=== PATIENT | female | born 1935 | race Caucasian/White ===

== ENCOUNTER 2017-10-14 18:32 | Inpatient (IN) | payer MEDICARE, BC ==
[~2017-10-14] VITALS: Ht 165.1 cm; Wt 40.0 kg
[~2017-10-14 18:32] MED LIST: DIAZ5TAB PO; OLME5TAB3 PO
[2017-10-14] MEDS ORDERED: ZOLP5TAB2 PO (19:14)
[2017-10-14] MEDS ORDERED: NITR50CA PO (19:14)
[2017-10-14] MEDS ORDERED: ONDA4TAB8 SL (19:14)
[2017-10-14] MEDS ORDERED: MULT1CAP34 PO (19:14)
[2017-10-14] MEDS ORDERED: QUETIAPINE 75 MG PO (19:14)
[2017-10-14] MEDS ORDERED: MIRT30TA7 PO (19:14)
[2017-10-14] MEDS ORDERED: METAMUCIL PO (19:14)
[2017-10-14] MEDS ORDERED: MAGN400O6 PO (19:14)
[2017-10-14] MEDS ORDERED: FERROUS SULFATE PO (19:14)
[2017-10-14] MEDS ORDERED: PANT40TA4 PO (19:14)
[2017-10-14] MEDS ORDERED: CLOT15CR4 TP (19:14)
[2017-10-14] MEDS ORDERED: ACET-2154 PO (19:14)
[2017-10-14] MEDS ORDERED: QUET50TA PO (19:14)
[2017-10-14] MEDS ORDERED: BISA10SU8 RC (19:14)
[2017-10-14] MEDS ORDERED: QUET25TA PO (19:14)
[2017-10-14] MEDS ORDERED: SACC250C PO (19:14)
[2017-10-14] MEDS ORDERED: METO50TA16 PO (19:14)
[2017-10-14] MEDS ORDERED: NA P133E RC (19:14)
[2017-10-14] MEDS ORDERED: CRAN400T3 PO (19:14)
[2017-10-14] MEDS ORDERED: ASPIRIN 325 MG TABLET PO ONE (19:30)
[2017-10-14] MEDS ORDERED: NITROGLYCERIN OINT 1 GM PACKET TP ONE ×2 (19:30→20:01)
[2017-10-14 19:44] LABS: BASOPHILS # (AUTO) 0.1 K/uL (0.0-8.0); BASOPHILS % (AUTO) 0.7 % (0.0-2.0); EOSINOPHILS % (AUTO) 0.3 % (0.0-7.0); HEMATOCRIT 40.1 % (31.2-41.9); HEMOGLOBIN 13.1 g/dL (10.9-14.3); LYMPHOCYTES # (AUTO) 1.5 K/uL (20.0-40.0); LYMPHOCYTES % (AUTO) 12.6 % (20.5-51.5); MEAN CORPUSCULAR HEMOGLOBIN 30.2 uug (24.7-32.8); MEAN CORPUSCULAR HGB CONC 33 g/dL (32.3-35.6); MEAN CORPUSCULAR VOLUME 92.3 fL (75.5-95.3); MONOCYTES # (AUTO) 0.6 K/uL (2.0-10.0); MONOCYTES % (AUTO) 4.7 % (0.0-11.0); NEUTROPHILS % (AUTO) 81.7 % (38.5-71.5); PLATELET COUNT (AUTO) 221 K/uL (179-408); RED BLOOD CELL COUNT(AUTO) 4.35 MIL/uL (3.63-4.92); WHITE BLOOD COUNT (AUTO) 12.3 K/uL (3.8-11.8)
[2017-10-14] MEDS ORDERED: IV NORMAL SALINE 1000 ML BAG IV ONE (19:45)
[2017-10-14] MEDS ORDERED: CEFTRIAXONE 1 G in IV DEXTROSE 5% 50 ML IV ONE (20:00)
[2017-10-14] MEDS ORDERED: ASPIRIN 325 MG TABLET ONE (20:02)
[2017-10-14 20:04] LABS: CARBON DIOXIDE 24 mmol/L (21-32); CHLORIDE 106 mmol/L (98-107); CREATININE 0.8 mg/dL (0.6-1.3); GLUCOSE 115 mg/dL (74-106); POTASSIUM 3.9 mmol/L (3.5-5.1); UREA NITROGEN, BLOOD 19 mg/dL (7-18)
[2017-10-14] MEDS ORDERED: ASPIRIN 300 MG RECTAL SUPP RC ONE ×2 (20:15→21:39)
[2017-10-14 20:18] LABS: ALANINE AMINOTRANSFERASE 19 U/L (14-59); ALKALINE PHOSPHATASE 161 U/L (50-136); ASPARTATE AMINOTRANSFERASE 18 U/L (15-37); BILIRUBIN,DIRECT 0.1 mg/dL (0.0-0.2); BILIRUBIN,TOTAL 0.4 mg/dL (0.2-1.0); TOTAL PROTEIN, SERUM 7.9 g/dL (6.4-8.2)
[2017-10-14] MEDS ORDERED: CEFTRIAXONE 1 G VIAL ONE (20:30)
[2017-10-14] MEDS ORDERED: ACETAMINOPHEN 325 MG SUPP ONE (20:37)
[2017-10-14] MEDS ORDERED: ONDANSETRON 4 MG/2 ML VIAL ONE (20:59)
[2017-10-14] MEDS ORDERED: ONDANSETRON IV *ER 4 MG/2 ML VIAL IV ONE (21:00)
[2017-10-14 21:04] LABS: *BILIRUBIN,URIN NEGATIVE (NEGATIVE); *BLOOD, URINE NEGATIVE (NEGATIVE); *CLARITY,URINE SLIGHTLY CLOUDY (CLEAR); *COLOR,URINE YELLOW (YELLOW); *KETONES,URINE NEGATIVE (NEGATIVE); *PROTEIN,URINE NEGATIVE (NEGATIVE); *UROBILINOGEN,URINE 0.2 E.U./dl (NORMAL); LEUKOCYTE ESTERASE ,URINE 3+ (NEGATIVE); NITRITE, URINE NEGATIVE (NEGATIVE); PH,URINE 7.5 (5.0-8.0); UGLUCOSE NEGATIVE (NEGATIVE)
[2017-10-14 21:06] LABS: BACTERIA,URINE MODERATE /HPF (NONE SEEN); RBC,URINE 0-3 /HPF (0-3); SQUAMOUS EPITHELIAL CELL,UR FEW /HPF (NONE SEEN); WBC,URINE 50-80 /HPF (0-3)
[2017-10-14 22:00] VITALS: BP 189/88
[2017-10-14] MEDS ORDERED: BISACODYL 10 MG SUPP.RECT RC PRN (22:00)
[2017-10-14] MEDS ORDERED: FLEET ENEMA 133 ML BOTTLE RC PRN (22:00)
[2017-10-14] MEDS ORDERED: ACETAMINOPHEN 325 MG TABLET PO PRN (22:00)
[2017-10-14] MEDS ORDERED: QUETIAPINE FUMARATE 25 MG TABLET PO PRN (22:00)
[2017-10-14] MEDS ORDERED: MAGNESIUM HYDROXIDE 30 ML LIQUID UDC PO PRN (22:15)
[2017-10-14] MEDS ORDERED: ONDANSETRON 4 MG/2 ML VIAL IV PRN (22:15)
[2017-10-14] MEDS ORDERED: HYDROCODONE/APAP 5-325MG TABLET PO PRN (22:15)
[2017-10-14] MEDS ORDERED: Z GUARD REMEDY PASTE 57 GM TUBE TOP PRN (22:15)
[2017-10-14] MEDS ORDERED: HYDROCODONE/APAP 10-325 MG TABLET PO PRN (22:15)
[2017-10-14] MEDS: IV NS 1000 ML 1,000 ML IV PRN (22:22)
[2017-10-14] MEDS ORDERED: ENOXAPARIN SODIUM 40 MG/0.4 ML DISP.SYRIN SQ ONE (23:30)
[2017-10-15] MEDS: LORAZEPAM 2 MG/1 ML VIAL IV PRN ×3 (00:03→23:13)
[2017-10-15 00:57] VITALS: BP 145/68
[2017-10-15 04:37] VITALS: BP 142/60
[2017-10-15 04:48] LABS: CARBON DIOXIDE 24 mmol/L (21-32); CHLORIDE 109 mmol/L (98-107); CREATININE 0.9 mg/dL (0.6-1.3); GLUCOSE 123 mg/dL (74-106); MAGNESIUM 1.9 mg/dL (1.8-2.4); PHOSPHOROUS 3.8 mg/dL (2.5-4.9); POTASSIUM 4.4 mmol/L (3.5-5.1); UREA NITROGEN, BLOOD 18 mg/dL (7-18)
[2017-10-15 04:57] LABS: THYROID STIMULATING HORMONE 0.602 mIU/mL (0.358-3.740)
[2017-10-15 05:17] LABS: CHOLESTEROL 204 mg/dL (<200); HDL CHOLESTEROL 49 mg/dL (40-60); TRIGLYCERIDES 85 MG/DL (30-150)
[2017-10-15 05:46] LABS: BASOPHILS % (AUTO) 0.4 % (0.0-2.0); HEMATOCRIT 37.1 % (31.2-41.9); HEMOGLOBIN 12.2 g/dL (10.9-14.3); LYMPHOCYTES # (AUTO) 1.2 K/uL (20.0-40.0); MEAN CORPUSCULAR HEMOGLOBIN 30.8 uug (24.7-32.8); MEAN CORPUSCULAR HGB CONC 33 g/dL (32.3-35.6); MEAN CORPUSCULAR VOLUME 93.8 fL (75.5-95.3); MONOCYTES # (AUTO) 0.4 K/uL (2.0-10.0); MONOCYTES % (AUTO) 3.6 % (0.0-11.0); NEUTROPHILS # (AUTO) 10.4 K/uL (1.8-8.9); PLATELET COUNT (AUTO) 191 K/uL (179-408); RED BLOOD CELL COUNT(AUTO) 3.96 MIL/uL (3.63-4.92); WHITE BLOOD COUNT (AUTO) 12.1 K/uL (3.8-11.8)
[2017-10-15] MEDS ORDERED: BISACODYL 10 MG SUPP.RECT RC PRN (07:13)
[2017-10-15] MEDS ORDERED: FLEET ENEMA 133 ML BOTTLE RC PRN (07:17)
[2017-10-15] MEDS ORDERED: QUETIAPINE FUMARATE 25 MG TABLET PO PRN (07:18)
[2017-10-15] MEDS: METOPROLOL TARTRATE 50 MG TABLET PO SCH ×2 (08:07→16:00)
[2017-10-15] MEDS: QUETIAPINE FUMARATE 100 MG TABLET PO SCH (08:07)
[2017-10-15] MEDS ORDERED: MAGNESIUM HYDROXIDE 30 ML LIQUID UDC PO SCH (09:00)
[2017-10-15] MEDS ORDERED: CLOTRIMAZOLE/BETAMET DIPROP CREAM 15 GM TUBE TP SCH (09:00)
[2017-10-15] MEDS: IV NS 1000 ML 1,000 ML IV PRN (11:47)
[2017-10-15 11:50] VITALS: BP 104/72
[2017-10-15 15:35] VITALS: BP 170/90
[2017-10-15] MEDS: CLOTRIMAZOLE/BETAMET DIPROP CREAM 15 GM TUBE TP SCH ×2 (16:48→20:00)
[2017-10-15] MEDS: MIRTAZAPINE 15 MG TABLET PO SCH (20:00)
[2017-10-15] MEDS: QUETIAPINE FUMARATE 25 MG TABLET PO SCH (20:00)
[2017-10-15] MEDS: ENOXAPARIN SODIUM 40 MG/0.4 ML DISP.SYRIN SQ SCH (20:01)
[2017-10-15] MEDS: CEFTRIAXONE 1 G in IV DEXTROSE 5% 50 ML IV SCH (20:03)
[2017-10-15 21:14] VITALS: BP 165/69
[2017-10-16] MEDS: IV NS 1000 ML 1,000 ML IV PRN ×2 (01:41→15:01)
[2017-10-16 04:09] VITALS: BP 101/62
[2017-10-16] MEDS: METOPROLOL TARTRATE 50 MG TABLET PO SCH ×2 (08:00→16:07)
[2017-10-16] MEDS: QUETIAPINE FUMARATE 100 MG TABLET PO SCH (08:00)
[2017-10-16] MEDS: CLOTRIMAZOLE/BETAMET DIPROP CREAM 15 GM TUBE TP SCH ×2 (08:01→20:08)
[2017-10-16 11:29] VITALS: BP 147/81
[2017-10-16 14:56] VITALS: BP 158/81
[2017-10-16] MEDS: MUPIROCIN 2% OINT 22 GM TUBE NS SCH ×2 (15:15→20:08)
[2017-10-16] MEDS: LORAZEPAM 2 MG/1 ML VIAL IV PRN (15:48)
[2017-10-16 19:51] VITALS: BP 162/77
[2017-10-16] MEDS: MIRTAZAPINE 15 MG TABLET PO SCH (20:05)
[2017-10-16] MEDS: CEFTRIAXONE 1 G in IV DEXTROSE 5% 50 ML IV SCH (20:08)
[2017-10-16] MEDS: QUETIAPINE FUMARATE 25 MG TABLET PO SCH (20:08)
[2017-10-16] MEDS: ENOXAPARIN SODIUM 40 MG/0.4 ML DISP.SYRIN SQ SCH (20:09)
[2017-10-17] MEDS: LORAZEPAM 2 MG/1 ML VIAL IV PRN ×3 (02:33→20:48)
[2017-10-17 04:00] VITALS: BP 162/72
[2017-10-17] MEDS: IV NS 1000 ML 1,000 ML IV PRN ×2 (05:31→17:49)
[2017-10-17] MEDS: QUETIAPINE FUMARATE 100 MG TABLET PO SCH (08:04)
[2017-10-17] MEDS: MUPIROCIN 2% OINT 22 GM TUBE NS SCH ×2 (08:04→20:47)
[2017-10-17] MEDS: METOPROLOL TARTRATE 50 MG TABLET PO SCH ×2 (08:04→16:05)
[2017-10-17] MEDS: CLOTRIMAZOLE/BETAMET DIPROP CREAM 15 GM TUBE TP SCH ×2 (08:05→20:47)
[2017-10-17] MEDS ORDERED: PANTOPRAZOLE SODIUM 40 MG TABLET.DR PO SCH (10:45)
[2017-10-17] MEDS: PANTOPRAZOLE ORAL SUSPENSION 40 MG SUSPDR.PKT PO SCH (11:15)
[2017-10-17 11:39] VITALS: BP 161/86
[2017-10-17 14:35] LABS: BASOPHILS # (AUTO) 0.1 K/uL (0.0-8.0); BASOPHILS % (AUTO) 0.9 % (0.0-2.0); EOSINOPHILS # (AUTO) 0.1 K/uL (0.0-0.7); EOSINOPHILS % (AUTO) 0.9 % (0.0-7.0); HEMATOCRIT 38.7 % (31.2-41.9); HEMOGLOBIN 12.9 g/dL (10.9-14.3); LYMPHOCYTES # (AUTO) 1.6 K/uL (20.0-40.0); MEAN CORPUSCULAR HGB CONC 33 g/dL (32.3-35.6); MEAN CORPUSCULAR VOLUME 93.1 fL (75.5-95.3); MONOCYTES # (AUTO) 0.8 K/uL (2.0-10.0); NEUTROPHILS # (AUTO) 8.2 K/uL (1.8-8.9); NEUTROPHILS % (AUTO) 76.2 % (38.5-71.5); PLATELET COUNT (AUTO) 178 K/uL (179-408); RED BLOOD CELL COUNT(AUTO) 4.16 MIL/uL (3.63-4.92); WHITE BLOOD COUNT (AUTO) 10.8 K/uL (3.8-11.8)
[2017-10-17 14:48] LABS: CARBON DIOXIDE 19 mmol/L (21-32); CHLORIDE 107 mmol/L (98-107); CREATININE 0.9 mg/dL (0.6-1.3); GLUCOSE 100 mg/dL (74-106); UREA NITROGEN, BLOOD 15 mg/dL (7-18)
[2017-10-17 15:53] VITALS: BP 123/80
[2017-10-17] MEDS: QUETIAPINE FUMARATE 25 MG TABLET PO SCH (20:47)
[2017-10-17] MEDS: MIRTAZAPINE 15 MG TABLET PO SCH (20:47)
[2017-10-17] MEDS: ATORVASTATIN 10 MG TABLET PO SCH (20:47)
[2017-10-17] MEDS: ENOXAPARIN SODIUM 40 MG/0.4 ML DISP.SYRIN SQ SCH (20:48)
[2017-10-17 20:53] VITALS: BP 182/80
[2017-10-17] MEDS: CEFTRIAXONE 1 G in IV DEXTROSE 5% 50 ML IV SCH (20:54)
[2017-10-17] MEDS: CLONIDINE HCL 0.1 MG TABLET PO PRN (21:47)
[2017-10-18] VITALS (8 sets, daily range): BP systolic 84–194; BP diastolic 33–98
[2017-10-18 06:23] LABS: BASOPHILS # (AUTO) 0.1 K/uL (0.0-8.0); BASOPHILS % (AUTO) 0.5 % (0.0-2.0); EOSINOPHILS # (AUTO) 0.1 K/uL (0.0-0.7); EOSINOPHILS % (AUTO) 0.8 % (0.0-7.0); HEMATOCRIT 36.9 % (31.2-41.9); HEMOGLOBIN 12.4 g/dL (10.9-14.3); LYMPHOCYTES # (AUTO) 1.4 K/uL (20.0-40.0); LYMPHOCYTES % (AUTO) 12.3 % (20.5-51.5); MEAN CORPUSCULAR HEMOGLOBIN 30.9 uug (24.7-32.8); MEAN CORPUSCULAR HGB CONC 34 g/dL (32.3-35.6); MEAN CORPUSCULAR VOLUME 91.9 fL (75.5-95.3); MONOCYTES # (AUTO) 0.8 K/uL (2.0-10.0); MONOCYTES % (AUTO) 6.6 % (0.0-11.0); NEUTROPHILS # (AUTO) 9.3 K/uL (1.8-8.9); NEUTROPHILS % (AUTO) 79.8 % (38.5-71.5); PLATELET COUNT (AUTO) 178 K/uL (179-408); RED BLOOD CELL COUNT(AUTO) 4.01 MIL/uL (3.63-4.92); WHITE BLOOD COUNT (AUTO) 11.6 K/uL (3.8-11.8)
[2017-10-18] MEDS: PANTOPRAZOLE ORAL SUSPENSION 40 MG SUSPDR.PKT PO SCH (06:36)
[2017-10-18] MEDS: CLONIDINE HCL 0.1 MG TABLET PO PRN (06:36)
[2017-10-18 06:43] LABS: ALANINE AMINOTRANSFERASE 15 U/L (14-59); ALKALINE PHOSPHATASE 124 U/L (50-136); ASPARTATE AMINOTRANSFERASE 26 U/L (15-37); BILIRUBIN,TOTAL 0.4 mg/dL (0.2-1.0); CARBON DIOXIDE 21 mmol/L (21-32); CHLORIDE 104 mmol/L (98-107); CREATININE 0.8 mg/dL (0.6-1.3); GLUCOSE 87 mg/dL (74-106); MAGNESIUM 1.5 mg/dL (1.8-2.4); PHOSPHOROUS 2.7 mg/dL (2.5-4.9); POTASSIUM 3.2 mmol/L (3.5-5.1); TOTAL PROTEIN, SERUM 6.8 g/dL (6.4-8.2); UREA NITROGEN, BLOOD 10 mg/dL (7-18)
[2017-10-18] MEDS: METOPROLOL TARTRATE 50 MG TABLET PO SCH (09:00)
[2017-10-18] MEDS: CLOTRIMAZOLE/BETAMET DIPROP CREAM 15 GM TUBE TP SCH ×2 (09:35→20:59)
[2017-10-18] MEDS: MUPIROCIN 2% OINT 22 GM TUBE NS SCH ×2 (09:35→20:53)
[2017-10-18] MEDS: QUETIAPINE FUMARATE 100 MG TABLET PO SCH ×2 (09:35→09:56)
[2017-10-18] MEDS ORDERED: IV NORMAL SALINE 500 ML IV ONE (11:30)
[2017-10-18] MEDS: POTASSIUM CHLORIDE 50 ML IV SCH ×2 (12:12→13:12)
[2017-10-18] MEDS: POTASSIUM CHLORIDE 20 MEQ in IV D5/ 0.9% NACL 1,000 ML IV PRN (13:10)
[2017-10-18] MEDS: MAGNESIUM SULFATE/D5W 100 ML IV SCH ×2 (14:50→16:51)
[2017-10-18] MEDS ORDERED: CLONIDINE-TTS 1 PATCH TD SCH (20:15)
[2017-10-18] MEDS: CEFTRIAXONE 1 G in IV DEXTROSE 5% 50 ML IV SCH (20:53)
[2017-10-18] MEDS: ATORVASTATIN 10 MG TABLET PO SCH (20:54)
[2017-10-18] MEDS: MIRTAZAPINE 15 MG TABLET PO SCH (20:54)
[2017-10-18] MEDS: QUETIAPINE FUMARATE 25 MG TABLET PO SCH (20:54)
[2017-10-18] MEDS: ENOXAPARIN SODIUM 40 MG/0.4 ML DISP.SYRIN SQ SCH (20:56)
[2017-10-19 03:33] VITALS: BP 172/76
[2017-10-19] MEDS: LORAZEPAM 2 MG/1 ML VIAL IV PRN ×2 (04:49→17:15)
[2017-10-19 06:03] LABS: BASOPHILS # (AUTO) 0.1 K/uL (0.0-8.0); BASOPHILS % (AUTO) 0.6 % (0.0-2.0); EOSINOPHILS # (AUTO) 0.2 K/uL (0.0-0.7); HEMATOCRIT 34.8 % (31.2-41.9); HEMOGLOBIN 12.1 g/dL (10.9-14.3); LYMPHOCYTES # (AUTO) 1.2 K/uL (20.0-40.0); LYMPHOCYTES % (AUTO) 13.3 % (20.5-51.5); MEAN CORPUSCULAR HEMOGLOBIN 31.5 uug (24.7-32.8); MEAN CORPUSCULAR HGB CONC 35 g/dL (32.3-35.6); MEAN CORPUSCULAR VOLUME 90.8 fL (75.5-95.3); MONOCYTES # (AUTO) 0.7 K/uL (2.0-10.0); MONOCYTES % (AUTO) 7.5 % (0.0-11.0); NEUTROPHILS # (AUTO) 7.2 K/uL (1.8-8.9); NEUTROPHILS % (AUTO) 76.6 % (38.5-71.5); PLATELET COUNT (AUTO) 161 K/uL (179-408); RED BLOOD CELL COUNT(AUTO) 3.84 MIL/uL (3.63-4.92); WHITE BLOOD COUNT (AUTO) 9.4 K/uL (3.8-11.8)
[2017-10-19 06:25] LABS: ALANINE AMINOTRANSFERASE 16 U/L (14-59); ALKALINE PHOSPHATASE 115 U/L (50-136); ASPARTATE AMINOTRANSFERASE 23 U/L (15-37); BILIRUBIN,TOTAL 0.3 mg/dL (0.2-1.0); CARBON DIOXIDE 24 mmol/L (21-32); CHLORIDE 111 mmol/L (98-107); CREATININE 0.8 mg/dL (0.6-1.3); GLUCOSE 117 mg/dL (74-106); MAGNESIUM 1.8 mg/dL (1.8-2.4); PHOSPHOROUS 2.1 mg/dL (2.5-4.9); POTASSIUM 3.5 mmol/L (3.5-5.1); TOTAL PROTEIN, SERUM 6.2 g/dL (6.4-8.2); UREA NITROGEN, BLOOD 10 mg/dL (7-18)
[2017-10-19] MEDS: PANTOPRAZOLE ORAL SUSPENSION 40 MG SUSPDR.PKT PO SCH (06:25)
[2017-10-19] MEDS: MUPIROCIN 2% OINT 22 GM TUBE NS SCH ×2 (08:43→20:21)
[2017-10-19] MEDS: CLOTRIMAZOLE/BETAMET DIPROP CREAM 15 GM TUBE TP SCH ×2 (08:44→20:22)
[2017-10-19 08:56] VITALS: BP_SYST 178; BP_SYST 186; BP_DIAS 112; BP_DIAS 114
[2017-10-19] MEDS: POTASSIUM CHLORIDE 20 MEQ in IV D5/ 0.9% NACL 1,000 ML IV PRN (08:58)
[2017-10-19 10:52] VITALS: BP 169/99
[2017-10-19] MEDS ORDERED: POTASSIUM PHOSPHATE MM 7.5 MMOL in IV DEXTROSE 5% 100 ML IV ONE (11:00)
[2017-10-19] MEDS: METOPROLOL TARTRATE 50 MG TABLET PO SCH ×2 (12:07→20:18)
[2017-10-19] MEDS: CLONIDINE HCL 0.1 MG TABLET PO PRN ×2 (13:20→19:09)
[2017-10-19 14:16] VITALS: BP 157/61
[2017-10-19] MEDS ORDERED: MUPI22OI2 NS (15:42)
[2017-10-19] MEDS ORDERED: ATOR10TA PO (15:42)
[2017-10-19] MEDS ORDERED: QUET25TA PO (15:42)
[2017-10-19] MEDS ORDERED: BISA10SU12 RC (15:42)
[2017-10-19] MEDS ORDERED: CLON0.1T14 PO (15:42)
[2017-10-19] MEDS ORDERED: MAGN400O6 PO (15:42)
[2017-10-19] MEDS ORDERED: CEPH500C2 PO (15:53)
[2017-10-19 18:45] VITALS: BP 178/68
[2017-10-19 19:00] VITALS: BP 178/68
[2017-10-19] MEDS ORDERED: HALOPERIDOL LACTATE 5 MG/1 ML VIAL IM PRN (19:30)
[2017-10-19] MEDS: MIRTAZAPINE 15 MG TABLET PO SCH (20:18)
[2017-10-19] MEDS: ENOXAPARIN SODIUM 40 MG/0.4 ML DISP.SYRIN SQ SCH (20:18)
[2017-10-19] MEDS: HALOPERIDOL 0.5 MG TABLET PO SCH (20:18)
[2017-10-19] MEDS: ATORVASTATIN 10 MG TABLET PO SCH (20:18)
[2017-10-19] MEDS: CEPHALEXIN MONOHYDRATE 500 MG CAPSULE PO SCH (22:20)
[2017-10-19] MEDS: AMLODIPINE 5 MG TABLET PO SCH (22:20)
[2017-10-20 04:00] VITALS: BP 156/70
[2017-10-20] MEDS: PANTOPRAZOLE ORAL SUSPENSION 40 MG SUSPDR.PKT PO SCH (06:03)
[2017-10-20] MEDS: CEPHALEXIN MONOHYDRATE 500 MG CAPSULE PO SCH ×2 (06:03→13:13)
[2017-10-20] MEDS ORDERED: IV NORMAL SALINE 500 ML IV ONE (06:30)
[2017-10-20] MEDS ORDERED: IV NS 1000 ML 1,000 ML IV PRN (06:30)
[2017-10-20] MEDS: METOPROLOL TARTRATE 50 MG TABLET PO SCH (09:58)
[2017-10-20] MEDS: AMLODIPINE 5 MG TABLET PO SCH (09:58)
[2017-10-20] MEDS: HALOPERIDOL 0.5 MG TABLET PO SCH (09:58)
[2017-10-20] MEDS: CLOTRIMAZOLE/BETAMET DIPROP CREAM 15 GM TUBE TP SCH (09:59)
[2017-10-20] MEDS: MUPIROCIN 2% OINT 22 GM TUBE NS SCH (10:14)
[2017-10-20 11:23] VITALS: BP 123/66
== END 2017-10-20 14:00 | DRG 871 ==
LOC: ER 18:33 → TELE 21:43 → MED 10-15 11:21
DX: A41.9 Sepsis, unspecified organism (principal); G93.41 Metabolic encephalopathy; E43 Unspecified severe protein-calorie malnutrition; N39.0 Urinary tract infection, site not specified; I48.92 Unspecified atrial flutter; R64 Cachexia; Z68.1 Body mass index [BMI] 19.9 or less, adult; F03.90 Unspecified dementia, unspecified severity, without behavioral disturbance, psychotic disturbance, mood disturbance, and anxiety; Z88.0 Allergy status to penicillin; Z88.2 Allergy status to sulfonamides; I10 Essential (primary) hypertension; F32.9 Major depressive disorder, single episode, unspecified; F41.9 Anxiety disorder, unspecified; E78.5 Hyperlipidemia, unspecified; D69.6 Thrombocytopenia, unspecified; Z22.322 Carrier or suspected carrier of Methicillin resistant Staphylococcus aureus; E83.42 Hypomagnesemia; E87.6 Hypokalemia; E83.39 Other disorders of phosphorus metabolism
CPT/HCPCS: 36415; 70030-TC; 71045; 83735; 84100; 84443; 85025; 87400; 92526; 92610; 93005; A4663; C1758; J0696; J1650; J2060; J2405; J3475; J3480; J3490; J7030; J7042; J7060

== ENCOUNTER 2019-02-10 23:33 | Inpatient (IN) | payer MEDICARE, BC ==
[~2019-02-10] VITALS: Ht 160 cm; Wt 37.2 kg
[~2019-02-10 23:33] MED LIST changes: +ACET-2154 PO; +ATOR10TA PO; +CEPH500C2 PO; +CLON0.1T14 PO; +CLOT15CR4 TP; +CRAN400T3 PO; -DIAZ5TAB PO; +MAGN400O6 PO; +METO50TA16 PO; +MIRT30TA7 PO; +MUPI22OI2 NS; -OLME5TAB3 PO; +PANT40TA4 PO; +QUET50TA PO; +QUETIAPINE 75 MG PO; +SACC250C PO
--- NOTE | 2019-02-11 00:01 | NUR ---
Dr. Gupta at bedside for MSE
--- NOTE | 2019-02-11 00:12 | NUR ---
Patient BIB faculty administrator via w/c. A&O x1. c/o cough x1 day and fever of 102 at home. was given tylenol 1hr ASSOCIATE ENGINEER. Breathing even and unlabored. no facial grimacing noted. pulses palpable.
[2019-02-11] MEDS ORDERED: PSYL0.4C2 PO (00:13)
[2019-02-11] MEDS ORDERED: NITR50CA PO (00:13)
[2019-02-11] MEDS ORDERED: MULT1TAB73 PO (00:13)
[2019-02-11] MEDS ORDERED: SENN-168 PO (00:13)
[2019-02-11] MEDS ORDERED: ZOLP5TAB8 PO (00:13)
[2019-02-11] MEDS ORDERED: ONDA4TAB11 PO (00:13)
[2019-02-11] MEDS ORDERED: QUET25TA PO (00:13)
[2019-02-11] MEDS ORDERED: IV NORMAL SALINE 1000 ML BAG IV ONE (00:15)
[2019-02-11 00:23] LABS: BASOPHILS # (AUTO) 0.1 K/uL (0.0-8.0); BASOPHILS % (AUTO) 0.4 % (0.0-2.0); EOSINOPHILS # (AUTO) 0.1 K/uL (0.0-0.7); EOSINOPHILS % (AUTO) 0.4 % (0.0-7.0); HEMATOCRIT 35.9 % (31.2-41.9); HEMOGLOBIN 11.8 g/dL (10.9-14.3); LYMPHOCYTES # (AUTO) 0.5 K/uL (20.0-40.0); LYMPHOCYTES % (AUTO) 2.3 % (20.5-51.5); MEAN CORPUSCULAR HEMOGLOBIN 29.8 uug (24.7-32.8); MEAN CORPUSCULAR HGB CONC 33 g/dL (32.3-35.6); MEAN CORPUSCULAR VOLUME 91.1 fL (75.5-95.3); MONOCYTES # (AUTO) 1.1 K/uL (2.0-10.0); MONOCYTES % (AUTO) 5.3 % (0.0-11.0); NEUTROPHILS # (AUTO) 18.6 K/uL (1.8-8.9); NEUTROPHILS % (AUTO) 91.6 % (38.5-71.5); PLATELET COUNT (AUTO) 211 K/uL (179-408); RED BLOOD CELL COUNT(AUTO) 3.94 MIL/uL (3.63-4.92); WHITE BLOOD COUNT (AUTO) 20.3 K/uL (3.8-11.8)
[2019-02-11 00:34] LABS: CREATININE 1.1 mg/dL (0.6-1.3); POTASSIUM 4.2 mmol/L (3.5-5.1)
[2019-02-11 00:45] LABS: BILIRUBIN,DIRECT 0.1 mg/dL (0.0-0.2); BILIRUBIN,TOTAL 0.4 mg/dL (0.2-1.0); TOTAL PROTEIN, SERUM 7.2 g/dL (6.4-8.2)
[2019-02-11 00:46] LABS: THYROID STIMULATING HORMONE 0.648 mIU/mL (0.358-3.740)
[2019-02-11 01:01] LABS: *BILIRUBIN,URIN NEGATIVE (NEGATIVE); *CLARITY,URINE CLEAR (CLEAR); *COLOR,URINE YELLOW (YELLOW); *KETONES,URINE NEGATIVE (NEGATIVE); *UROBILINOGEN,URINE 0.2 E.U./dl (NORMAL); LEUKOCYTE ESTERASE ,URINE NEGATIVE (NEGATIVE); NITRITE, URINE NEGATIVE (NEGATIVE); UGLUCOSE NEGATIVE (NEGATIVE)
[2019-02-11] MEDS ORDERED: CEFTRIAXONE /D5W 50ML IVPB **ER PYXIS IV ONE (01:06)
[2019-02-11] MEDS ORDERED: CEFTRIAXONE 1 G in IV DEXTROSE 5% 50 ML IV ONE (01:15)
[2019-02-11] MEDS ORDERED: VANCOMYCIN 1G/D5W 200 ML PIGGYBACK IV ONE (01:15)
[2019-02-11] MEDS ORDERED: IV NORMAL SALINE 250 ML IV ONE (01:15)
[2019-02-11 01:23] LABS: *BLOOD, URINE TRACE (NEGATIVE); BACTERIA,URINE FEW /HPF (NONE SEEN); SQUAMOUS EPITHELIAL CELL,UR NONE SEEN /HPF (NONE SEEN); WBC,URINE 0-3 /HPF (0-3)
--- NOTE | 2019-02-11 01:27 | NUR ---
Called [facility] for Panel placement c/o Dr. Varner
[2019-02-11] MEDS ORDERED: IV NS 1000 ML 1,000 ML IV ONE (01:30)
[2019-02-11] MEDS ORDERED: VANCOMYCIN IV 200 ML ONE (01:39)
[2019-02-11] MEDS ORDERED: LEVOFLOXACIN 500 MG/D5W 500 MG in PREMIXED 1 EACH IV SCH (01:45)
[2019-02-11] MEDS ORDERED: ACETAMINOPHEN 325 MG TABLET PO PRN (01:45)
[2019-02-11] MEDS ORDERED: HYDROCODONE/APAP 5-325MG TABLET PO PRN (01:45)
[2019-02-11] MEDS ORDERED: ONDANSETRON 4 MG/2 ML VIAL IV PRN (01:45)
[2019-02-11] MEDS ORDERED: Z GUARD REMEDY PASTE 57 GM TUBE TOP PRN (01:45)
[2019-02-11] MEDS ORDERED: MAGNESIUM HYDROXIDE 30 ML LIQUID UDC PO PRN ×2 (01:45)
--- NOTE | 2019-02-11 02:30 | NUR ---
Pt. admitted to [facility] , under care of Dr. Varner Belongs List completed. MRSA swab done
--- NOTE | 2019-02-11 02:41 | NUR ---
0.9%NS 250ML to finish infusing in tele. Power RN made aware
[2019-02-11 03:20] VITALS: BP 152/65
[2019-02-11] MEDS ORDERED: LEVOFLOXACIN 500 MG/D5W 100 ML ONE (03:53)
[2019-02-11 05:11] VITALS: BP 129/77
[2019-02-11 06:26] LABS: CREATININE 0.9 mg/dL (0.6-1.3); MAGNESIUM 1.7 mg/dL (1.8-2.4); PHOSPHOROUS 2.9 mg/dL (2.5-4.9); POTASSIUM 4.2 mmol/L (3.5-5.1)
[2019-02-11] MEDS: PANTOPRAZOLE SODIUM 40 MG TABLET.DR PO SCH (07:00)
[2019-02-11 07:04] LABS: BASOPHILS % (AUTO) 0.2 % (0.0-2.0); EOSINOPHILS % (AUTO) 0.3 % (0.0-7.0); HEMATOCRIT 36.7 % (31.2-41.9); HEMOGLOBIN 11.8 g/dL (10.9-14.3); LYMPHOCYTES % (AUTO) 6.3 % (20.5-51.5); MEAN CORPUSCULAR HEMOGLOBIN 30.3 uug (24.7-32.8); MEAN CORPUSCULAR HGB CONC 32 g/dL (32.3-35.6); MEAN CORPUSCULAR VOLUME 94.3 fL (75.5-95.3); MONOCYTES # (AUTO) 1.1 K/uL (2.0-10.0); MONOCYTES % (AUTO) 6.7 % (0.0-11.0); NEUTROPHILS # (AUTO) 14.4 K/uL (1.8-8.9); NEUTROPHILS % (AUTO) 86.5 % (38.5-71.5); PLATELET COUNT (AUTO) 170 K/uL (179-408); WHITE BLOOD COUNT (AUTO) 16.7 K/uL (3.8-11.8)
--- NOTE | 2019-02-11 07:22 | NUR ---
Clinical Pharmacy Note: Vancomycin Dosing per Pharmacy Subjective: Vancomycin IV to start on this 83 yo female patient for sepsis. Objective: BUN 22/Scr 1.1 WBC 20.3 Temperature 98.1 ht 160 cm wt 37 kg Assessment/Plan: Patient received vanco 1 gm IVPB x1 in ED today at 0200. Due to low body wt, will dose by random level. Plan to order vanco random tomorrow with am labns for further dosing. follow daily.
--- NOTE | 2019-02-11 08:00 | NUR ---
Pt pulled out IV. New IV started on left forearm and wrapped with kerlex. PT confused and demented. Pt alert x 1 responds to name. Pt is in no acute distress. Call light is within reach.
[2019-02-11] MEDS: SENNOSIDES 1 TABLET PO SCH ×2 (09:24→17:00)
[2019-02-11 11:30] VITALS: BP 161/67
[2019-02-11] MEDS: MAGNESIUM SULFATE/D5W 100 ML IV SCH ×2 (13:12→14:31)
[2019-02-11 15:39] VITALS: BP 127/52
--- NOTE | 2019-02-11 17:06 | NUR ---
Pt had soft large stool. Held senna to prevent any complications of diarrhea.
--- NOTE | 2019-02-11 18:52 | NUR ---
PT pulling her IV even after multiple attempts to wrapp iv with kerlix not effective. Decreased stimuli and distraction to pt on pulling IV non effective. Got order for Mittens. No fall noted in this shift. Call light is within reach.
[2019-02-11] MEDS: IV NS 1000 ML 1,000 ML IV PRN (20:03)
[2019-02-11 20:20] VITALS: BP 145/96
[2019-02-12 00:31] VITALS: BP 117/57
[2019-02-12] MEDS: PANTOPRAZOLE SODIUM 40 MG TABLET.DR PO SCH (07:30)
--- NOTE | 2019-02-12 07:30 | NUR ---
protonix taken out of pysxis by rn document improvement.
[2019-02-12] MEDS: LEVOFLOXACIN/D5W 250 MG in PREMIX 1 EA IV SCH (08:11)
[2019-02-12] MEDS: SENNOSIDES 1 TABLET PO SCH ×2 (09:49→17:00)
[2019-02-12] MEDS: METOPROLOL TARTRATE 25 MG TABLET PO SCH ×2 (09:50→20:13)
--- NOTE | 2019-02-12 11:43 | NUR ---
WOUND CARE CONSULT: PT PRESENTS WITH CALLUSES TO FEET, SACRAL SCAR AND INCONTINENCE, PRESENT ON ADMISSION. RECOMMENDATIONS MADE FOR SKIN PROTECTION. DISCUSSED WITH NURSING STAFF. WILL SEE PRN. LEY IN AGREEMENT WITH PLAN OF CARE. PT ON FIRST STEP [facility]. Addendum: 02/12/19 at 1145 by JANET CYR RN Amended: Links added.
[2019-02-12 12:20] VITALS: BP 171/81
[2019-02-12 12:37] LABS: CREATININE 0.9 mg/dL (0.6-1.3); MAGNESIUM 1.8 mg/dL (1.8-2.4); POTASSIUM 3.9 mmol/L (3.5-5.1); VANCOMYCIN,RANDOM 4.3 ug/mL (18.0-26.0)
--- NOTE | 2019-02-12 13:30 | NUR ---
Clinical Pharmacy Note: Vancomycin Dosing per Pharmacy Subjective: Vancomycin IV to continue on this 83 yo female patient for CAP with sepsis. Objective: BUN 30 Scr 0.9 WBC 16.7 (02/11) Temperature 98.7 Vanco random level on 02/12 at 1200: 4.3 (lab draw at noon instead of 0600 as ordered) ht 160 cm wt 37 kg Assessment/Plan: Will start vanco 500mg IVPB q34h for predicted vanco trough level of 15.8 mcg/ml at stead state. 1st dose today at 1400. Will monitor renal function & adjust the dose if needed. Plan to draw vanco trough level before 4th dose (not yet ordered). follow daily.
[2019-02-12] MEDS ORDERED: VANCOMYCIN IV 500 MG in IV DEXTROSE 5% 100 ML IV SCH (14:00)
[2019-02-12 15:38] VITALS: BP 143/71
[2019-02-12 16:10] VITALS: BP 145/88
[2019-02-12] MEDS: METRONIDAZOLE 500 MG/NS 100ML 500 MG in PREMIXED 1 EACH IV SCH (17:11)
--- NOTE | 2019-02-12 17:12 | NUR ---
pt had large soft bm. holding senakot to prevent any diarrhea
--- NOTE | 2019-02-12 17:30 | NUR ---
pLACE CALL TO [facility]: Pt very restless and moving around bed throughout. Spoke with daughter Katy Burgess,DPOA, wants to have her mom as DNR hospice will notify RENEWAL SPECIALIST. Awaiting call back.
[2019-02-12] MEDS ORDERED: QUETIAPINE FUMARATE 25 MG TABLET PO ONE (18:30)
[2019-02-12 21:08] VITALS: BP 101/50
[2019-02-12] MEDS: IV NS 1000 ML 1,000 ML IV PRN (22:34)
[2019-02-13] MEDS: METRONIDAZOLE 500 MG/NS 100ML 500 MG in PREMIXED 1 EACH IV SCH ×2 (00:19→08:04)
[2019-02-13] MEDS: LEVOFLOXACIN/D5W 250 MG in PREMIX 1 EA IV SCH (03:17)
[2019-02-13 04:55] VITALS: BP 125/68
[2019-02-13 06:20] LABS: BASOPHILS % (AUTO) 0.3 % (0.0-2.0); EOSINOPHILS % (AUTO) 0.1 % (0.0-7.0); HEMATOCRIT 29.6 % (31.2-41.9); HEMOGLOBIN 9.7 g/dL (10.9-14.3); LYMPHOCYTES # (AUTO) 1.3 K/uL (20.0-40.0); LYMPHOCYTES % (AUTO) 17.2 % (20.5-51.5); MEAN CORPUSCULAR HGB CONC 33 g/dL (32.3-35.6); MONOCYTES # (AUTO) 0.8 K/uL (2.0-10.0); MONOCYTES % (AUTO) 10.8 % (0.0-11.0); NEUTROPHILS # (AUTO) 5.3 K/uL (1.8-8.9); NEUTROPHILS % (AUTO) 71.6 % (38.5-71.5); PLATELET COUNT (AUTO) 160 K/uL (179-408); RED BLOOD CELL COUNT(AUTO) 3.15 MIL/uL (3.63-4.92); WHITE BLOOD COUNT (AUTO) 7.4 K/uL (3.8-11.8)
[2019-02-13] MEDS: PANTOPRAZOLE SODIUM 40 MG TABLET.DR PO SCH ×2 (06:25→06:29)
--- NOTE | 2019-02-13 06:30 | NUR ---
Patient received in bed sleeping. no signs of acute distress and v/s stable throughout shift. safety and comfort measures provided. bed in lowest position, side rails up x2, bed alarm on. BP medication held for the night due to low blood pressure. Seroquel administered after verification from pharmacy that it is okay to give. Per pharmacy, would like RN to administer Seroquel one time despite interaction with Levaquin. protonix refused this morning. returned to [facility]. will continue plan of care and endorse to morning shift accordingly.
[2019-02-13 06:36] LABS: CREATININE 0.8 mg/dL (0.6-1.3)
--- NOTE | 2019-02-13 08:00 | NUR ---
Pt is in no acute distress. Kept pt npo until cleared by ST. Call light is within reach.
[2019-02-13 08:37] VITALS: BP 135/55
[2019-02-13] MEDS: SENNOSIDES 1 TABLET PO SCH (08:42)
[2019-02-13] MEDS: METOPROLOL TARTRATE 25 MG TABLET PO SCH (08:42)
--- NOTE | 2019-02-13 10:00 | NUR ---
ST done recommends NPO status.
[2019-02-13] MEDS ORDERED: METR500T PO (11:17)
[2019-02-13] MEDS ORDERED: LEVO500T90 PO (11:17)
[2019-02-13 11:39] VITALS: BP 144/55
--- NOTE | 2019-02-13 12:30 | NUR ---
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 PT is DNR. O2 @ 2 liter. Pt comfortable. Call light is within reach.
== END 2019-02-13 12:30 | disposition hospice, home (50) | DRG 871 ==
LOC: ER 23:34 → TELE3 02-11 02:05 → MEDSURG3 02-12 18:30
PROVIDERS: ADMIT Internal Medicine; ATTEND Internal Medicine
DX: A41.9 Sepsis, unspecified organism (principal); J18.9 Pneumonia, unspecified organism; G93.41 Metabolic encephalopathy; E43 Unspecified severe protein-calorie malnutrition; E87.2 Acidosis; R65.20 Severe sepsis without septic shock; I48.0 Paroxysmal atrial fibrillation; Z66 Do not resuscitate; Z88.0 Allergy status to penicillin; Z88.2 Allergy status to sulfonamides; I11.9 Hypertensive heart disease without heart failure; R13.10 Dysphagia, unspecified; F03.90 Unspecified dementia, unspecified severity, without behavioral disturbance, psychotic disturbance, mood disturbance, and anxiety; Z79.899 Other long term (current) drug therapy; Z87.440 Personal history of urinary (tract) infections; I70.0 Atherosclerosis of aorta; K21.9 Gastro-esophageal reflux disease without esophagitis
CPT/HCPCS: 36415; 70030-TC; 71045; 83605; 83735; 84100; 84443; 85025; 85730; 87040; 87086; 87400; 93005; A4663; C1758; G0378; J0696; J1956; J3370; J3475; J3490; J7030; J7050; J7060